=== PATIENT | female | born 1950 | race Caucasian/White ===

== ENCOUNTER 2017-05-30 17:24 | Emergency (ER) | payer MEDICARE, BC ==
[~2017-05-30] VITALS: Ht 162.6 cm; Wt 72.6 kg
[2017-05-30] MEDS: IV NS 0.9% 500 ML BAG IV ONE (18:00)
[2017-05-30] MEDS ORDERED: HYDROMORPHONE INJ 2 MG/ML DISP.SYRIN ONE (18:04)
[2017-05-30] MEDS ORDERED: ONDANSETRON HCL/PF 4 MG/2 ML VIAL ONE (18:05)
[2017-05-30] MEDS: HYDROMORPHONE INJ 2 MG/ML DISP.SYRIN IV ONE (19:49)
[2017-05-30] MEDS: ONDANSETRON HCL/PF 4 MG/2 ML VIAL IVP ONE (19:50)
[2017-05-30] MEDS ORDERED: HYDROCODONE/APAP 10/325MG 1 EA TABLET ONE (19:58)
[2017-05-30] MEDS ORDERED: ONDANSETRON 4 MG TAB.RAPDIS ONE (19:59)
[2017-05-30] MEDS: HYDROCODONE/APAP 10/325MG 1 EA TABLET PO ONE (20:08)
[2017-05-30] MEDS: ONDANSETRON 4 MG TAB.RAPDIS SL ONE (20:08)
[2017-05-30 20:23] VITALS: BP 148/86
== END 2017-05-30 20:27 | disposition home or self-care (01) ==
LOC: ER 17:27
DX: S52.502A Unspecified fracture of the lower end of left radius, initial encounter for closed fracture (principal); S82.002A Unspecified fracture of left patella, initial encounter for closed fracture; F32.9 Major depressive disorder, single episode, unspecified; G62.9 Polyneuropathy, unspecified; I10 Essential (primary) hypertension; F41.9 Anxiety disorder, unspecified; W18.30XA Fall on same level, unspecified, initial encounter; Y93.K1 Activity, walking an animal; Y92.89 Other specified places as the place of occurrence of the external cause; Y99.8 Other external cause status
CPT/HCPCS: 73110; 73564-TC; A4606; J1170; J2405; J7040; Q0162; Z7610